=== PATIENT | female | born 1955 | race Caucasian/White ===

== ENCOUNTER 2017-04-10 22:14 | Observation (INO) | payer OTHER ==
[~2017-04-10] VITALS: Ht 160 cm; Wt 83.0 kg
[~2017-04-10 22:14] MED LIST: ACYC400T PO; IBUP-232 PO; IMIT100T PO; LISI10TA3 PO; MELA10TA PO; MIRA25TA PO; OMEP40CA2 PO; PERC7.5T13 PO; TAMS5CAP PO; TOPI50TA7 PO; VITA10004 PO; VITA500030 CHEW; ZOFR4TAB PO
[2017-04-10 22:20] VITALS: BP 179/86; PULSE 85; RESP 20; TEMP 97.6; O2SAT 95
[2017-04-10] MEDS ORDERED: NITROGLYCERIN 2% OINT 1 GM PACKET TOPICAL ONE (22:45)
[2017-04-10] MEDS ORDERED: ASPIRIN 81 MG CHEW TAB PO ONE (22:45)
[2017-04-10] MEDS ORDERED: SODIUM CHLORIDE 0.9% FLUSH 10 ML FLUSH IVF PRN (22:45)
--- NOTE | 2017-04-10 22:47 | PD ---
HPI Chief Complaint: Chest Pain Time Seen by Provider: 22:39 Travel History International Travel<30 days: No Contact w/Intl Traveler<30days: No Traveled to known affect area: No History of Present Illness HPI This is a 61-year-old female who presents to the emergency department with chest pain that started about 2 hours prior to arrival, feeling like a pressure in the center of her chest, moderate severity associated with some tingling in her left arm and some discomfort in her jaw. She also says she was short of breath when the chest pain was worse. She had just taken a long walk prior to the onset of chest pain. She denies any fevers or chills. She denies any recent long trips or leg swelling. She has a history of hypertension but denies diabetes, hyperlipidemia or smoking history. Her brother had a heart attack in her father has congestive heart failure. She thinks she may have had a stress test but it was years ago. PFSH Past Medical History Hx Anticoagulant Therapy: No Anxiety: Yes Depression: Yes Cancer: No Cardiovascular Problems: Yes (htn) Chemotherapy: No Cerebrovascular Accident: No Diabetes: No Diminished Hearing: No Endocrine: No Fibromyalgia: Yes Gastrointestinal Disorders: Yes (ACID REFLUX, DIVERTICULITIS, INFLAMED COLON) GERD: Yes Genitourinary: Yes (KIDNEY INFECTION, "STAGE 3 KIDNEY PROBLEM") Hepatitis: Yes (HEP C FROM BLOOD TRANSFUSION-AT 12) Hiatal Hernia: No Hypertension: Yes Immune Disorder: No Musculoskeletal: Yes (BACK PAIN) Neurologic: Yes (MIGRAINES, [id number]) Psychiatric: No Reproductive: No Respiratory: No Migraines: Yes Thyroid Disease: No Tetanus Vaccination: > 5 Years ?: Not : 4 Para: 2 Miscarriage: 2 Tubal Ligation: Yes Past Surgical History Abdominal Surgery: Yes (appy) AICD: No Appendectomy: Yes Gynecologic Surgery: Yes (total hysterectomy) Hysterectomy: Yes (AGE 32) Joint Replacement: No Pacemaker: No Other Surgery: Yes Social History Alcohol Use: Yes (social) Tobacco Use: No Substance Use: No Allergies-Medications (Allergen,Severity, Reaction): Coded Allergies: penicillin G (Unverified Allergy, Intermediate, HIVES, 01/29/17) Reported Meds & Prescriptions Reported Meds & Active Scripts Active Reported Vitamin D3 (Cholecalciferol) 2,000 Unit Cap 2,000 Units PO DAILY Imitrex (Sumatriptan Succinate) 100 Mg Tab 100 Mg PO ONCE PRN If a satisfactory response has not been obtained at 2 hours, a second dose may be administered Acyclovir 400 Mg Tab 400 Mg PO BID Topiramate 50 Mg Tab 50 Mg PO BID Omeprazole 40 Mg Cap 40 Mg PO DAILY Lisinopril 10 Mg Tab 10 Mg PO DAILY Review of Systems Except as stated in HPI: all other systems reviewed are Neg Physical Exam Narrative GENERAL:Well appearing, no acute distress SKIN: Focused skin assessment warm and dry. HEAD: Atraumatic. Normocephalic. EYES: Pupils equal and round. No injection or drainage. ENT: Moist mucous membranes NECK: Trachea midline. CARDIOVASCULAR: Regular rate and rhythm. No murmur appreciated. RESPIRATORY: Clear to auscultation. Breath sounds equal bilaterally. GASTROINTESTINAL: Abdomen soft, non-tender, nondistended. MUSCULOSKELETAL: No obvious deformities. NEUROLOGICAL: Awake and alert. No obvious cranial nerve deficits. Moving all extremities. PSYCHIATRIC: Appropriate mood and affect; insight and judgment normal. Data Data Last Documented VS Vital Signs Date Time Temp Pulse Resp B/P (MAP) Pulse Ox O2 Delivery O2 Flow Rate FiO2 04/10/17 22:40 Room Air 04/10/17 22:20 97.6 85 20 179/86 (117) 95 Orders Orders Electrocardiogram (04/10/17 22:44) Complete Blood Count With Diff (04/10/17 22:44) Comprehensive Metabolic Panel (04/10/17 22:44) Troponin I (04/10/17 22:44) Chest, Single Ap (04/10/17 22:44) Ecg Monitoring (04/10/17 22:44) Bilateral Bp Monitoring (04/10/17 22:44) Iv Access Insert/Monitor (04/10/17 22:44) Oximetry (04/10/17 22:44) Oxygen Administration (04/10/17 22:44) Aspirin Chew (Aspirin Chew) (04/10/17 22:45) Sodium Chloride 0.9% Flush (Ns Flush) (04/10/17 22:45) Nitroglycerin 2% Oint (Nitroglycerin 2% (04/10/17 22:45) Labs Laboratory Tests Test 04/10/17 22:50 White Blood Count 7.4 TH/MM3 Red Blood Count 4.62 MIL/MM3 Hemoglobin 14.1 GM/DL Hematocrit 43.0 % Mean Corpuscular Volume 93.0 FL Mean Corpuscular Hemoglobin 30.4 PG Mean Corpuscular Hemoglobin Concent 32.7 % Red Cell Distribution Width 12.8 % Platelet Count 185 TH/MM3 Mean Platelet Volume 9.2 FL Neutrophils (%) (Auto) 64.3 % Lymphocytes (%) (Auto) 26.8 % Monocytes (%) (Auto) 6.6 % Eosinophils (%) (Auto) 1.6 % Basophils (%) (Auto) 0.7 % Neutrophils # (Auto) 4.7 TH/MM3 Lymphocytes # (Auto) 2.0 TH/MM3 Monocytes # (Auto) 0.5 TH/MM3 Eosinophils # (Auto) 0.1 TH/MM3 Basophils # (Auto) 0.1 TH/MM3 CBC Comment DIFF FINAL Differential Comment Blood Urea Nitrogen 20 MG/DL Creatinine 1.20 MG/DL Random Glucose 106 MG/DL Total Protein 7.4 GM/DL Albumin 3.8 GM/DL Calcium Level 8.4 MG/DL Alkaline Phosphatase 91 U/L Aspartate Amino Transf (AST/SGOT) 15 U/L Alanine Aminotransferase (ALT/SGPT) 30 U/L Total Bilirubin 0.3 MG/DL Sodium Level 141 MEQ/L Potassium Level 3.7 MEQ/L Chloride Level 109 MEQ/L Carbon Dioxide Level 25.0 MEQ/L Anion Gap 7 MEQ/L Estimat Glomerular Filtration Rate 46 ML/MIN Troponin I LESS THAN 0.02 NG/ML MDM Medical Decision Making Medical Screen Exam Complete: Yes Emergency Medical Condition: Yes Interpretation(s) EKG: Normal sinus rhythm with no ST changes No leukocytosis Mild renal insufficiency Troponin is normal Chest x-ray: No acute process Differential Diagnosis Acute coronary syndrome, pulmonary embolism, costochondritis, pericarditis Narrative Course This is a 61-year-old female who presents to the emergency department with left- sided chest discomfort. She is placed on a monitor and an IV was established. EKG is nonischemic. Labs are unremarkable. She was given aspirin and nitroglycerin. Her blood pressure improved in the emergency department. She' ll be placed in observation for serial cardiac enzymes to rule out acute coronary syndrome. Diagnosis Primary Impression: Chest pain Qualified Codes: R07.9 - Chest pain, unspecified Admitting Information Admitting Physician Requests: Chantal Alves MD Apr 10, 2017 22:47
[2017-04-10] MEDS ORDERED: VITA2000 PO (22:48)
[2017-04-10 23:00] VITALS: BP 145/76
[2017-04-10 23:05] VITALS: BP 141/80
--- NOTE | 2017-04-10 23:07 | RADRPT ---
EXAM DATE/TIME: 04/10/2017 22:53 [facility] COMPARISON: No previous studies available for comparison. INDICATIONS : Chest pain. MEDICAL HISTORY : None. SURGICAL HISTORY : None. ENCOUNTER: Initial ACUITY: 1 day PAIN SCORE: 6/10 LOCATION: middle chest FINDINGS: A single view of the chest demonstrates the lungs to be symmetrically aerated without evidence of mas s, infiltrate or effusion. The cardiomediastinal contours are unremarkable. Osseous structures are intact. CONCLUSION: No acute disease. Daniele Fernandes MD on April 10, 2017 at 23:05 Board Certified Radiologist. This report was verified electronically.
[2017-04-10 23:16] LABS: AUTOMATED NEUTROPHIL # 4.7 TH/MM3 (1.8-7.7); BASOPHIL # 0.1 TH/MM3 (0-0.2); BASOPHIL % 0.7 % (0.0-2.0); EOSINOPHIL # 0.1 TH/MM3 (0-0.4); EOSINOPHIL % 1.6 % (0.0-4.0); HEMOGLOBIN 14.1 GM/DL (11.6-15.3); LYMPH % 26.8 % (9.0-44.0); MEAN CORPUSCULAR HEMOGLOBIN 30.4 PG (27.0-34.0); MEAN CORPUSCULAR HGB CONC 32.7 % (32.0-36.0); MEAN PLATELET VOLUME 9.2 FL (7.0-11.0); MONO % 6.6 % (0.0-8.0); MONOCYTE # 0.5 TH/MM3 (0-0.9); NEUT % 64.3 % (16.0-70.0); PLATELET COUNT 185 TH/MM3 (150-450); RED BLOOD COUNT 4.62 MIL/MM3 (4.00-5.30); RED CELL DISTRIBUTION WIDTH 12.8 % (11.6-17.2); WHITE BLOOD COUNT 7.4 TH/MM3 (4.0-11.0)
[2017-04-10 23:25] LABS: CHLORIDE 109 MEQ/L (98-107); SODIUM (NA) 141 MEQ/L (136-145)
[2017-04-10 23:28] LABS: ALBUMIN 3.8 GM/DL (3.4-5.0); BLOOD UREA NITROGEN 20 MG/DL (7-18); CALCIUM 8.4 MG/DL (8.5-10.1); GLUCOSE,RANDOM 106 MG/DL (74-106)
[2017-04-10 23:31] LABS: ALT (GPT) 30 U/L (10-53); AST (GOT) 15 U/L (15-37); GLOMERULAR FILTRATION RATE 46 ML/MIN (>89)
[2017-04-10 23:33] LABS: TOTAL BILIRUBIN ADULT 0.3 MG/DL (0.2-1.0); TOTAL PROTEIN 7.4 GM/DL (6.4-8.2)
[2017-04-10 23:34] LABS: ALKALINE PHOSPHATASE 91 U/L (45-117)
[2017-04-10 23:36] LABS: TROPONIN I LESS THAN 0.02 NG/ML (0.02-0.05)
[2017-04-11] VITALS (7 sets, daily range): BP systolic 103–127; BP diastolic 58–70; PULSE 72–82; RESP 16–20; TEMP 96.1–98.4; O2SAT 93–96
[2017-04-11] MEDS ORDERED: SODIUM CHLORIDE 0.9% FLUSH 10 ML FLUSH IV FLUSH PRN (01:30)
[2017-04-11] MEDS: SODIUM CHLORIDE 0.9% FLUSH 10 ML FLUSH IV FLUSH SCH ×2 (01:55→09:00)
[2017-04-11] MEDS ORDERED: ACETAMINOPHEN 325 MG TAB PO PRN (06:00)
--- NOTE | 2017-04-11 09:30 | HHI.HP ---
[facility] Shad Montana Do, MD Admission Diagnosis chest pain Diagnoses: Chief Complaint: Chest pain Travel History International Travel<30 Days: No Contact w/Intl Traveler <30 Da: No Traveled to Known Affected Are: No History of Present Illness 61-year-old white female being admitted for chest pain. Patient was in her usual state of health until last night when she was sitting watching television and experienced a sudden onset of midsternal chest pain that was crushing in nature, up to an 8 out of 10, with some mild radiation to her jaw and left shoulder. Had some shortness of breath associated with this, denies any nausea vomiting or any diaphoresis otherwise. Denies taking any medications try to treat the pain. She held a pillow tightly to her chest to see this would help, nothing really helped or worsened her pain. Pain remained at a constant level and at that point patient decided to proceed to the ER. Patient does admit to taking daily acid reflux medications. 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 w/ sister denies cig use, lived w/ parents that smoked as a child Physical Exam Vital Signs Vital Signs Date Time Temp Pulse Resp B/P (MAP) Pulse Ox O2 Delivery O2 Flow Rate FiO2 04/11/17 08:00 96.4 72 20 122/63 (82) 93 04/11/17 03:00 73 04/11/17 03:00 96.1 72 20 106/62 (77) 96 04/11/17 02:38 69 16 109/66 (80) 96 2.00 04/11/17 01:40 96 Nasal Cannula 2.00 04/11/17 01:15 78 16 103/58 (73) 95 Nasal Cannula 2.00 04/11/17 00:31 82 20 113/63 (80) 96 Nasal Cannula 2.00 04/10/17 23:05 141/80 (100) 04/10/17 23:00 145/76 (99) 04/10/17 22:40 Room Air 04/10/17 22:35 Nasal Cannula 2.00 04/10/17 22:20 95 Nasal Cannula 2.00 04/10/17 22:20 97.6 85 20 179/86 (117) 95 Physical Exam VS: Afebrile GENERAL: No acute distress, awake, lying in bed SKIN: Warm and dry. EYES: No scleral icterus. No injection or drainage. ENT: No nasal bleeding or discharge. Mucous membranes pink and moist. CARDIOVASCULAR: Regular rate and rhythm. no murmurs RESPIRATORY: No accessory muscle use. Clear to auscultation. Breath sounds equal bilaterally. GASTROINTESTINAL: Abdomen soft, non-tender, nondistended. Extremities: No clubbing, cyanosis, or edema. No obvious deformities. MUSCULOSKELETAL: Extremities without clubbing, cyanosis, or edema. No obvious deformities. grossly intact ROM with 5/5 strength in upper and lower extremities proximally. Mild chest wall sternal soreness which the patient says is not the same as her pain upon presentation. NEUROLOGICAL: Awake and alert. No obvious cranial nerve deficits. No facial droop nor slurred speech noted. PSYCHIATRIC: Appropriate mood and affect; insight and judgment normal. Laboratory Laboratory Tests Test 04/10/17 22:50 04/11/17 01:37 04/11/17 05:15 White Blood Count 7.4 Red Blood Count 4.62 Hemoglobin 14.1 Hematocrit 43.0 Mean Corpuscular Volume 93.0 Mean Corpuscular Hemoglobin 30.4 Mean Corpuscular Hemoglobin Concent 32.7 Red Cell Distribution Width 12.8 Platelet Count 185 Mean Platelet Volume 9.2 Neutrophils (%) (Auto) 64.3 Lymphocytes (%) (Auto) 26.8 Monocytes (%) (Auto) 6.6 Eosinophils (%) (Auto) 1.6 Basophils (%) (Auto) 0.7 Neutrophils # (Auto) 4.7 Lymphocytes # (Auto) 2.0 Monocytes # (Auto) 0.5 Eosinophils # (Auto) 0.1 Basophils # (Auto) 0.1 CBC Comment DIFF FINAL Differential Comment Blood Urea Nitrogen 20 Creatinine 1.20 Random Glucose 106 Total Protein 7.4 Albumin 3.8 Calcium Level 8.4 Alkaline Phosphatase 91 Aspartate Amino Transf (AST/SGOT) 15 Alanine Aminotransferase (ALT/SGPT) 30 Total Bilirubin 0.3 Sodium Level 141 Potassium Level 3.7 Chloride Level 109 Carbon Dioxide Level 25.0 Anion Gap 7 Estimat Glomerular Filtration Rate 46 Troponin I LESS THAN 0.02 LESS THAN 0.02 LESS THAN 0.02 Result Diagram: 04/10/17224904/10/172249 Imaging Last Impressions Myocardial Perfusion Scan Nuc Med 04/11/17 0000 Signed Impressions: Service Date/Time: March 10:28 - CONCLUSION: 1. No fixed or reversible defects to suggest ischemia or infarction. 2. Normal wall motion and calculated ejection fraction. RISK CATEGORY: Low (<1%% Annual Mortality Rate) Josesito Daly MD Chest X-Ray 04/10/172243 Signed Impressions: Service Date/Time: Monday, April 10, 2017 22:53 - CONCLUSION: No acute disease. Daniele Fernandes MD Caprini VTE Risk Assessment Caprini VTE Risk Assessment: Mod/High Risk (score >= 2) Caprini Risk Assessment Model Point Value = 1 Point Value = 2 Point Value = 3 Point Value = 5 Age 41-60 Minor surgery BMI > 25 kg/m2 Swollen legs Varicose veins or History of unexplained or recurrent spontaneous Oral contraceptives or hormone replacement Sepsis (< 1 month) Serious lung disease, including pneumonia (< 1 month) Abnormal pulmonary function Acute myocardial infarction Congestive heart failure (< 1 month) History of inflammatory bowel disease Medical patient at bed rest Age 61-74 Arthroscopic surgery Major open surgery (> 45 min) Laparoscopic surgery (> 45 min) Malignancy Confined to bed (> 72 hours) Immobilizing plaster cast Central venous access Age >= 75 History of VTE Family history of VTE Factor V Leiden Prothrombin [id number] Lupus anticoagulant Anticardiolipin antibodies Elevated serum homocysteine Heparin-induced thrombocytopenia Other congenital or acquired thrombophilia Stroke (< 1 month) Elective arthroplasty Hip, pelvis, or leg fracture Acute spinal cord injury (< 1 month) Prophylaxis Regimen Total Risk Factor Score Risk Level Prophylaxis Regimen 0-1 Low Early ambulation 2 Moderate Order ONE of the following: *Sequential Compression Device (SCD) *Heparin 5000 units SQ BID 3-4 Higher Order ONE of the following medications: *Heparin 5000 units SQ TID *Enoxaparin/Lovenox 40 mg SQ daily (WT < 150 kg, CrCl > 30 mL/min) *Enoxaparin/Lovenox 30 mg SQ daily (WT < 150 kg, CrCl > 10-29 mL/min) *Enoxaparin/Lovenox 30 mg SQ BID (WT < 150 kg, CrCl > 30 mL/min) AND/OR *Sequential Compression Device (SCD) 5 or more Highest Order ONE of the following medications: *Heparin 5000 units SQ TID (Preferred with Epidurals) *Enoxaparin/Lovenox 40 mg SQ daily (WT < 150 kg, CrCl > 30 mL/min) *Enoxaparin/Lovenox 30 mg SQ daily (WT < 150 kg, CrCl > 10-29 mL/min) *Enoxaparin/Lovenox 30 mg SQ BID (WT < 150 kg, CrCl > 30 mL/min) AND *Sequential Compression Device (SCD) Assessment and Plan Assessment and Plan 61-year-old white female admitted for chest pain. Hemodynamically stable upon admission. Chest pain - I independently reviewed the EKGs show sinus rhythm. We'll proceed with Lexiscan protocol initial cardiac workup otherwise, trending troponins. Unable to do treadmill stress test due to fibromyalgia. Explained to patient that most common cause chest pain is GERD and muscle skeletal origin otherwise. Hypertension - Continue home lisinopril GERD - Continue PPI Migraine - Patient complaining of migraine at this moment actively, will give one-time dose of Reglan and hold off on her when necessary sumatriptan since she might have possible stable angina. Continue her home topiramate Genital herpes - Continue home acyclovir Discharge disposition - Lexiscan was negative, patient's clinical status was stable. Has met maximal benefit from hospitalization and is clinically stable for discharge. Juan M Zurita MD Apr 11, 2017 09:30
[2017-04-11] MEDS ORDERED: ACETAMINOPHEN 500 MG CPLT PO ONE (09:45)
[2017-04-11] MEDS ORDERED: TOPIRAMATE 25 MG TAB PO SCH (09:45)
[2017-04-11] MEDS ORDERED: METOCLOPRAMIDE HCL 10 MG/2 ML VIAL IV PUSH ONE (09:45)
[2017-04-11] MEDS ORDERED: CHOLECALCIFEROL (VIT D3) 1000 UNIT TAB PO SCH (09:45)
[2017-04-11] MEDS ORDERED: PANTOPRAZOLE SOD 40 MG DELAYED RELEASE TAB PO SCH (09:45)
[2017-04-11] MEDS ORDERED: LISINOPRIL 10 MG TAB PO SCH (09:45)
[2017-04-11] MEDS ORDERED: REGADENOSON INJ 0.4 MG/5 ML SYR IV ONE (10:28)
[2017-04-11] MEDS ORDERED: ACYCLOVIR 200 MG CAP PO SCH (10:45)
--- NOTE | 2017-04-11 12:12 | RADRPT ---
EXAM DATE/TIME: 04/11/2017 10:28 [facility] COMPARISON: No previous studies available for comparison. INDICATIONS : Left sided chest pain with shortness of breath for one day. Angina. DOSE: 25.4 mCi Tc99m Myoview at stress. 8.5 mCi Tc99m Myoview at rest. 0.4 mg Lexiscan STRESS SYMPTOMS: Short of breath and flush. EJECTION FRACTION: 60% MEDICAL HISTORY : Hypertension. Hepatitis C. SURGICAL HISTORY : Hysterectomy. Appendectomy. ENCOUNTER: Initial ACUITY: 1 day PAIN SCALE: 5/10 LOCATION: Left chest TECHNIQUE: The patient underwent pharmacologic stress with infusion of prescribed dose. Continuous ECG tracing was monitored during stress. Gated SPECT imaging was performed after stress and conventional SPECT i maging was performed at rest. The examination was performed on a SPECT/CT scanner, both attenuation and non-corrected datasets were reviewed. FINDINGS: DISTRIBUTION: The maximum perfused segment at stress is in the lateral wall. There is a summed stress score 0. PERFUSION STUDY: The pattern of perfusion at stress is within normal limits. GATED STUDY: There is intact wall motion and thickening without hypokinetic or dyskinetic segments. CONCLUSION: 1. No fixed or reversible defects to suggest ischemia or infarction. 2. Normal wall motion and calculated ejection fraction. RISK CATEGORY: Low (<1% Annual Mortality Rate) Josesito Daly MD on April 11, 2017 at 12:09 Board Certified Radiologist. This report was verified electronically.
--- NOTE | 2017-04-11 12:54 | HHI.DCPOC ---
Discharge Care Plan Diagnosis: (1) Chest pain Your Health Problems Are: Chest Pain Goals to Promote Your Health * To prevent worsening of your condition and complications * To maintain your health at the optimal level Directions to Meet Your Goals Take your medications as prescribed Follow your dietary instruction Follow activity as directed Keep your appointments as scheduled Take your immunizations and boosters as scheduled If your symptoms worsen call your PCP, if no PCP go to Urgent Care Center or Emergency Room Smoking is Dangerous to Your Health. Avoid second hand smoke Call the 24-hour hour crisis hotline for domestic abuse at Riaz Kiran Apr 11, 2017 12:54
--- NOTE | 2017-04-11 12:54 | HHI.DCPOC ---
Discharge Care Plan Diagnosis: (1) Chest pain Your Health Problems Are: Chest Pain Goals to Promote Your Health * To prevent worsening of your condition and complications * To maintain your health at the optimal level Directions to Meet Your Goals Take your medications as prescribed Follow your dietary instruction Follow activity as directed Keep your appointments as scheduled Take your immunizations and boosters as scheduled If your symptoms worsen call your PCP, if no PCP go to Urgent Care Center or Emergency Room Smoking is Dangerous to Your Health. Avoid second hand smoke Call the 24-hour hour crisis hotline for domestic abuse at Riaz Kiran Apr 11, 2017 12:54
--- NOTE | 2017-04-11 12:54 | HHI.DCPOC ---
Discharge Care Plan Diagnosis: (1) Chest pain Your Health Problems Are: Chest Pain Goals to Promote Your Health * To prevent worsening of your condition and complications * To maintain your health at the optimal level Directions to Meet Your Goals Take your medications as prescribed Follow your dietary instruction Follow activity as directed Keep your appointments as scheduled Take your immunizations and boosters as scheduled If your symptoms worsen call your PCP, if no PCP go to Urgent Care Center or Emergency Room Smoking is Dangerous to Your Health. Avoid second hand smoke Call the 24-hour hour crisis hotline for domestic abuse at Riaz Kiran Apr 11, 2017 12:54
--- NOTE | 2017-04-11 14:51 | EKG ---
Date Performed: 04/10/2017 Time Performed: 22:24:12 PTAGE: 61 years EKG: Sinus rhythm NORMAL ECG NO PREVIOUS TRACING DOCTOR: Ayanna Sahu Interpretating Date/Time 04/11/2017 14:45:52
--- NOTE | 2017-04-11 14:51 | EKG ---
Date Performed: 04/10/2017 Time Performed: 22:24:12 PTAGE: 61 years EKG: Sinus rhythm NORMAL ECG NO PREVIOUS TRACING DOCTOR: Ayanna Sahu Interpretating Date/Time 04/11/2017 14:45:52
--- NOTE | 2017-04-11 14:51 | EKG ---
Date Performed: 04/10/2017 Time Performed: 22:24:12 PTAGE: 61 years EKG: Sinus rhythm NORMAL ECG NO PREVIOUS TRACING DOCTOR: Ayanna Sahu Interpretating Date/Time 04/11/2017 14:45:52
--- NOTE | 2017-04-11 14:59 | EKG ---
Date Performed: 04/11/2017 Time Performed: 01:56:03 PTAGE: 61 years EKG: Sinus rhythm WITH OCCASIONAL SUPRAVENTRICULAR PREMATURE COMPLEXES BORDERLINE ECG NO PREVIOUS TRACING Compared to prior tracing no significant change DOCTOR: Ayanna Sahu Interpretating Date/Time 04/11/2017 14:54:05
--- NOTE | 2017-04-11 14:59 | EKG ---
Date Performed: 04/11/2017 Time Performed: 04:26:25 PTAGE: 61 years EKG: Sinus rhythm NORMAL ECG PREVIOUS TRACING : 04/11/2017 01.56 Compared to prior tracing no significant change DOCTOR: Ayanna Sahu Interpretating Date/Time 04/11/2017 14:54:12
[2017-04-12] MEDS ORDERED: INFLUENZA VIRUS VACCINE (QUADRIVALENT) 0.5 ML SYR IM ONE (09:00)
--- NOTE | 2017-04-13 15:39 | TR ---
Date Performed: 04/11/2017 Time Performed: 10:52:02 DOCTOR: Julio Patel DRUG LIST: CLINICAL HISTORY: CHEST PAIN REASON FOR TEST: Chest pain REASON FOR ENDING: OBSERVATION: CONCLUSION: Lexiscan stress test was performed under standard four minute protocol. Radionuclide was injected one minute prior to ending the test. No electrocardiographic abormalities were present to suggest ischemia. Nuclear imaging and interpretation are pending. COMMENTS:
== END 2017-04-11 14:34 | disposition home or self-care (01) ==
LOC: PHED 22:14 → PHEDA 04-11 01:36 → PH3A 04-11 02:41
PROVIDERS: ADMIT Hospitalist; ATTEND Hospitalist
DX: R07.89 Other chest pain (principal); I10 Essential (primary) hypertension; G43.909 Migraine, unspecified, not intractable, without status migrainosus; A60.00 Herpesviral infection of urogenital system, unspecified; K21.9 Gastro-esophageal reflux disease without esophagitis; M79.7 Fibromyalgia; R06.02 Shortness of breath; F41.9 Anxiety disorder, unspecified; F32.9 Major depressive disorder, single episode, unspecified; Z79.899 Other long term (current) drug therapy; Z82.49 Family history of ischemic heart disease and other diseases of the circulatory system
CPT/HCPCS: 71010; 78452; 80053; 84484; 85025; 93005; 93017; 96374; 99285; A9502; G0378; J2765; J2785

== ENCOUNTER 2017-11-15 19:19 | Emergency (ER) | payer OTHER ==
[~2017-11-15] VITALS: Ht 160 cm; Wt 84.3 kg
[~2017-11-15 19:19] MED LIST changes: -IBUP-232 PO; -MELA10TA PO; -MIRA25TA PO; -PERC7.5T13 PO; -TAMS5CAP PO; -VITA10004 PO; +VITA2000 PO; -VITA500030 CHEW; -ZOFR4TAB PO
[2017-11-15 19:23] VITALS: BP 148/68; PULSE 89; RESP 16; TEMP 98; O2SAT 96
[2017-11-15] MEDS ORDERED: OMEP20CA2 (19:50)
[2017-11-15] MEDS ORDERED: ACYC800T PO (19:50)
[2017-11-15] MEDS ORDERED: ROSU1TAB4 PO (19:50)
[2017-11-15] MEDS ORDERED: SODIUM CHLOR 0.9% 1000 ML INJ 1,000 ML IV SCH (19:52)
--- NOTE | 2017-11-15 19:56 | PD ---
HPI Chief Complaint: Abdominal Pain Time Seen by Provider: 19:34 Travel History International Travel<30 days: No Contact w/Intl Traveler<30days: No Traveled to known affect area: No History of Present Illness HPI Patient 62-year-old female with a history of kidney stones never requiring operative intervention presents emergency department for evaluation of suprapubic abdominal discomfort radiating to her back over the past few days, the patient states initially started just with suprapubic pain and then progressed to having back pain as well. She states it feels somewhat different than her normal kidney stone pain but is been for some time since she has had a kidney stone. No fevers no diarrhea no constipation mild nausea without vomiting. No chest pain or shortness of breath no headache. States symptoms are moderate, gradually worsening over the past few days, radiation and context as above per No vaginal bleeding vaginal discharge fevers diarrhea constipation vomiting blood in stool peer PFSH Past Medical History Hx Anticoagulant Therapy: No Anxiety: Yes Depression: Yes Cancer: No Cardiovascular Problems: Yes (htn) Chemotherapy: No Cerebrovascular Accident: No Diabetes: No Diminished Hearing: No Endocrine: No Fibromyalgia: Yes Gastrointestinal Disorders: Yes (ACID REFLUX, DIVERTICULITIS, INFLAMED COLON) GERD: Yes Genitourinary: Yes (KIDNEY INFECTION, "STAGE 3 KIDNEY PROBLEM") Hepatitis: Yes (HEP C FROM BLOOD TRANSFUSION-AT 12) Hiatal Hernia: No Hypertension: Yes Immune Disorder: No Implanted Vascular Access Dvce: No Musculoskeletal: Yes (BACK PAIN) Neurologic: Yes (MIGRAINES, [id number]) Psychiatric: No Reproductive: No Respiratory: No Migraines: Yes Radiation Therapy: No Thyroid Disease: No Tetanus Vaccination: > 5 Years Influenza Vaccination: Yes : 4 Para: 2 Miscarriage: 2 Tubal Ligation: Yes Past Surgical History Abdominal Surgery: Yes (appy) AICD: No Appendectomy: Yes Gynecologic Surgery: Yes (total hysterectomy) Hysterectomy: Yes Joint Replacement: No Pacemaker: No Other Surgery: Yes Social History Alcohol Use: Yes (social) Tobacco Use: No Substance Use: No Allergies-Medications (Allergen,Severity, Reaction): Coded Allergies: penicillin G (Verified Allergy, Intermediate, HIVES, 11/15/17) Reported Meds & Prescriptions Reported Meds & Active Scripts Active Bentyl (Dicyclomine HCl) 10 Mg Cap 10 Mg PO TID PRN Keflex (Cephalexin) 500 Mg Cap 500 Mg PO Q6H 7 Days Reported Rosuvastatin (Rosuvastatin Calcium) 5 Mg Tab 5 Mg PO DAILY Acyclovir 800 Mg Tab 800 Mg PO BID Omeprazole 20 Mg Cap Imitrex (Sumatriptan Succinate) 100 Mg Tab 100 Mg PO ONCE PRN If a satisfactory response has not been obtained at 2 hours, a second dose may be administered Topiramate 50 Mg Tab 50 Mg PO BID Lisinopril 10 Mg Tab 10 Mg PO DAILY Review of Systems Except as stated in HPI: all other systems reviewed are Neg Physical Exam Narrative GENERAL: Well-developed well-nourished no obvious distress SKIN: Focused skin assessment warm/dry. HEAD: Atraumatic. Normocephalic. EYES: Pupils equal and round. No scleral icterus. No injection or drainage. ENT: No nasal bleeding or discharge. Mucous membranes pink and moist. NECK: Trachea midline. No JVD. CARDIOVASCULAR: Regular rate and rhythm. No murmur appreciated. RESPIRATORY: No accessory muscle use. Clear to auscultation. Breath sounds equal bilaterally. GASTROINTESTINAL: Abdomen soft, non-tender, nondistended. Hepatic and splenic margins not palpable. No rebound no percussive tenderness, no CVA tenderness. Really the abdomen is benign peer MUSCULOSKELETAL: No obvious deformities. No clubbing. No cyanosis. No edema. NEUROLOGICAL: Awake and alert. No obvious cranial nerve deficits. Motor grossly within normal limits. Normal speech. PSYCHIATRIC: Appropriate mood and affect; insight and judgment normal. Data Data Last Documented VS Vital Signs Date Time Temp Pulse Resp B/P (MAP) Pulse Ox O2 Delivery O2 Flow Rate FiO2 11/15/17 22:01 11/15/17 21:30 78 18 96 Room Air 11/15/17 19:23 98.0 Orders Orders Complete Blood Count With Diff (11/15/17 19:52) Comprehensive Metabolic Panel (11/15/17 19:52) Lipase (11/15/17 19:52) Urinalysis - C+S If Indicated (11/15/17 19:52) Iv Access Insert/Monitor (11/15/17 19:52) Ecg Monitoring (11/15/17 19:52) Oximetry (11/15/17 19:52) Sodium Chlor 0.9% 1000 Ml Inj (Ns 1000 M (11/15/17 19:52) Sodium Chloride 0.9% Flush (Ns Flush) (11/15/17 20:00) Ketorolac Inj (Toradol Inj) (11/15/17 20:00) Ondansetron Odt (Zofran Odt) (11/15/17 20:00) Urine Culture (11/15/17 20:08) Ct Abd/Pel W/O Iv Contrast (11/15/17 ) Ed Discharge Order (11/15/17 21:54) Dicyclomine (Bentyl) (11/15/17 22:15) Labs Laboratory Tests Test 11/15/17 20:08 White Blood Count 10.0 TH/MM3 Red Blood Count 4.94 MIL/MM3 Hemoglobin 15.0 GM/DL Hematocrit 46.7 % Mean Corpuscular Volume 94.5 FL Mean Corpuscular Hemoglobin 30.4 PG Mean Corpuscular Hemoglobin Concent 32.2 % Red Cell Distribution Width 12.8 % Platelet Count 217 TH/MM3 Mean Platelet Volume 8.5 FL Neutrophils (%) (Auto) 69.2 % Lymphocytes (%) (Auto) 22.1 % Monocytes (%) (Auto) 6.0 % Eosinophils (%) (Auto) 1.6 % Basophils (%) (Auto) 1.1 % Neutrophils # (Auto) 6.9 TH/MM3 Lymphocytes # (Auto) 2.2 TH/MM3 Monocytes # (Auto) 0.6 TH/MM3 Eosinophils # (Auto) 0.2 TH/MM3 Basophils # (Auto) 0.1 TH/MM3 CBC Comment DIFF FINAL Differential Comment Urine Color YELLOW Urine Turbidity CLEAR Urine pH 5.5 Urine Specific Mcdowell 1.020 Urine Protein NEG mg/dL Urine Glucose (UA) NEG mg/dL Urine Ketones NEG mg/dL Urine Occult Blood NEG Urine Nitrite NEG Urine Bilirubin NEG Urine Urobilinogen 0.2 MG/DL Urine Leukocyte Esterase MOD Urine RBC 0-3 /hpf Urine WBC 9-14 /hpf Urine WBC Clumps FEW Urine Squamous Epithelial Cells 0-5 /hpf Urine Bacteria FEW /hpf Urine Mucus FEW /lpf Microscopic Urinalysis Comment CULTURE INDICATED Blood Urea Nitrogen 24 MG/DL Creatinine 1.44 MG/DL Random Glucose 92 MG/DL Total Protein 7.7 GM/DL Albumin 4.0 GM/DL Calcium Level 8.9 MG/DL Alkaline Phosphatase 100 U/L Aspartate Amino Transf (AST/SGOT) 16 U/L Alanine Aminotransferase (ALT/SGPT) 31 U/L Total Bilirubin 0.4 MG/DL Sodium Level 140 MEQ/L Potassium Level 3.6 MEQ/L Chloride Level 108 MEQ/L Carbon Dioxide Level 23.0 MEQ/L Anion Gap 9 MEQ/L Estimat Glomerular Filtration Rate 37 ML/MIN Lipase 350 U/L MDM Medical Decision Making Medical Screen Exam Complete: Yes Emergency Medical Condition: Yes Differential Diagnosis Kidney stone, UTI, acute abdomen unlikely, diverticulitis, colitis peer Narrative Course Patient room to the emergency department, she appears well and her abdomen is benign. She does have a bandlike distribution in her low abdomen, could be consistent with urinary tract infection which she has tested positive for here, CT abdomen does not show any kidney stones. Unfortunately our chemistry analyzer has gone down while the patient is in the emergency department with no telling when it will return functioning. I do have a sodium potassium and chloride on the patient which are reassuring. The patient is feeling somewhat better, and I discussed that while I do not have her creatinine or liver function tests back yet the remainder of her labs including a CBC and basic electrolytes are reassuring and I think that it is reasonable for her to consider discharge with antibiotic therapy at this time and she is agreeable. Discussed follow-up with her primary care physician and return to ED criteria. Later in the evening at the time of this dictation I reviewed her labs and her creatinine is baseline her LFTs and the remainder of the chemistry are reassuring. There is no indication for any other interventions based on these labs. Diagnosis Primary Impression: UTI (urinary tract infection) Med/Other Pt SpecificInfo: Prescription(s) given Scripts Dicyclomine (Bentyl) 10 Mg Cap 10 MG PO TID Y for ABDOMINAL CRAMPING, #20 CAP 0 Refills Prov: Nickolas Chowdhury MD 11/15/17 Cephalexin (Keflex) 500 Mg Cap 500 MG PO Q6H for Infection for 7 Days, #28 CAP 0 Refills Prov: Nickolas Chowdhury MD 11/15/17 Disposition: 01 DISCHARGE HOME Condition: Stable Nickolas Chowdhury MD Nov 15, 2017 19:56
[2017-11-15] MEDS ORDERED: ONDANSETRON ODT 4 MG TAB PO ONE (20:00)
[2017-11-15] MEDS ORDERED: SODIUM CHLORIDE 0.9% FLUSH 10 ML FLUSH IV FLUSH PRN (20:00)
[2017-11-15] MEDS ORDERED: KETOROLAC TROMETHAMINE 30 MG/ML (IVP) VIAL IVP ONE (20:00)
[2017-11-15 20:22] LABS: BILIRUBIN, URINE NEG (NEG); BLOOD, URINE NEG (NEG); GLUCOSE,URINE NEG (NEG); KETONE, URINE NEG (NEG); NITRITE,URINE NEG (NEG); PH, URINE 5.5 (5.0-8.5); URINE COLOR YELLOW (YELLW/STRAW); URINE LEUKOCYTE ESTERASE MOD (NEG)
[2017-11-15 20:27] LABS: AUTOMATED NEUTROPHIL # 6.9 TH/MM3 (1.8-7.7); BASOPHIL # 0.1 TH/MM3 (0-0.2); BASOPHIL % 1.1 % (0.0-2.0); EOSINOPHIL # 0.2 TH/MM3 (0-0.4); EOSINOPHIL % 1.6 % (0.0-4.0); HEMATOCRIT 46.7 % (35.0-46.0); LYMPH % 22.1 % (9.0-44.0); LYMPHOCYTE # 2.2 TH/MM3 (1.0-4.8); MEAN CELL VOLUME 94.5 FL (80.0-100.0); MEAN CORPUSCULAR HEMOGLOBIN 30.4 PG (27.0-34.0); MEAN CORPUSCULAR HGB CONC 32.2 % (32.0-36.0); MEAN PLATELET VOLUME 8.5 FL (7.0-11.0); MONOCYTE # 0.6 TH/MM3 (0-0.9); NEUT % 69.2 % (16.0-70.0); PLATELET COUNT 217 TH/MM3 (150-450); RED BLOOD COUNT 4.94 MIL/MM3 (4.00-5.30); RED CELL DISTRIBUTION WIDTH 12.8 % (11.6-17.2)
[2017-11-15 20:29] LABS: MUCUS URINE FEW /lpf (OCC)
[2017-11-15 20:30] VITALS: RESP 16; O2SAT 97
[2017-11-15 20:30] LABS: BACTERIA, URINE FEW /hpf; SQUAMOUS EPITHELIAL CELL URINE 0-5 /hpf (0-5); WHITE BLOOD CELL CLUMPS FEW
[2017-11-15 20:31] LABS: RBC, URINE 0-3 /hpf (0-3)
[2017-11-15 20:33] LABS: CHLORIDE 108 MEQ/L (98-107); SODIUM (NA) 140 MEQ/L (136-145)
[2017-11-15 20:37] LABS: CALCIUM 8.9 MG/DL (8.5-10.1)
[2017-11-15 21:30] VITALS: BP 96/53; PULSE 78; RESP 18; O2SAT 96
--- NOTE | 2017-11-15 21:32 | RADRPT ---
EXAM DATE: 11/15/2017 9:24 PM EDT AGE/SEX: 62 years / Female INDICATIONS: Lower abdomen pain and back pain for two days CLINICAL DATA: This is the patient's initial encounter. Patient reports that signs and symptoms have been present for 2 days and indicates a pain score of 6/10. MEDICAL/SURGICAL HISTORY: Hypertension. Diverticulitis. Renal disease. Hep c Appendectomy. Hysterectomy. RADIATION DOSE: 16.70 CTDI (mGy) COMPARISON: [facility], CT ABDOMEN & PELVIS W/O CONTRAST, 05/20/2016. . TECHNIQUE: Multiple contiguous axial images were obtained through the abdomen. Images were obtained using multiple row detector helical technique. Using dose reduction techniques, radiation dose was ke pt as low as reasonably achievable to obtain optimal diagnostic quality images. FINDINGS: Lower chest: No acute abnormality is identified. Hepatobiliary: Liver density is normal. There are multiple low-density lesions measuring up to 2.2 cm . These are stable and the larger lesions have features consistent with cysts while some of the small er lesions are too small to characterize. There are calcified stones in the gallbladder. No wall thic kening is present. Kidneys: No hydronephrosis, stone, or mass. Left kidney remains atrophic and there is a mildly hyperd ense stable lesion at the left upper pole kidney measuring 2.3 cm. Adrenal Glands: Within normal limits. Spleen: Within normal limits. Pancreas: Within normal limits. Vascular: The aorta is nonaneurysmal. There is mild atherosclerotic disease. Bowel/Mesentery: The stomach and small bowel demonstrate no abnormality. No acute colon abnormality i s seen. There is no free intraperitoneal air or fluid. There is sigmoid diverticulosis and mild scatt ered diverticula around the remainder of the colon. Abdominal Wall: No hernia is visualized. Retroperitoneum: No lymphadenopathy. Bladder: No wall thickening or mass. Reproductive: Uterus is absent. No adnexal abnormality is seen. Inguinal: No lymphadenopathy or hernia. Musculoskeletal: No acute osseous abnormality is identified. There are degenerative changes of the miah mbar spine. CONCLUSION: 1. No acute finding is identified to explain the clinical symptoms. 2. Stable mildly atrophic left kidney containing a mildly hyperdense left upper pole lesion measurin g 2.3 cm. 3. Stable nonacute findings include cholelithiasis, hepatic cysts, and sigmoid diverticulosis. Electronically signed by: Daniele Broussard MD 11/15/2017 9:31 PM EDT
[2017-11-15] MEDS ORDERED: CEPH-460 PO (21:54)
[2017-11-15] MEDS ORDERED: DICY10 PO (22:12)
[2017-11-15 22:13] LABS: AST (GOT) 16 U/L (15-37); BLOOD UREA NITROGEN 24 MG/DL (7-18); CREATININE 1.44 MG/DL (0.50-1.00); GLOMERULAR FILTRATION RATE 37 ML/MIN (>89); GLUCOSE,RANDOM 92 MG/DL (74-106)
[2017-11-15 22:14] LABS: ALT (GPT) 31 U/L (10-53)
[2017-11-15] MEDS ORDERED: DICYCLOMINE HCL 10 MG CAP PO ONE (22:15)
[2017-11-15 22:17] LABS: ALKALINE PHOSPHATASE 100 U/L (45-117); TOTAL BILIRUBIN ADULT 0.4 MG/DL (0.2-1.0); TOTAL PROTEIN 7.7 GM/DL (6.4-8.2)
== END 2017-11-15 22:30 | disposition home or self-care (01) ==
LOC: PHED 19:19
DX: N39.0 Urinary tract infection, site not specified (principal); B95.61 Methicillin susceptible Staphylococcus aureus infection as the cause of diseases classified elsewhere; F41.9 Anxiety disorder, unspecified; F32.9 Major depressive disorder, single episode, unspecified; I10 Essential (primary) hypertension; M79.7 Fibromyalgia; K21.9 Gastro-esophageal reflux disease without esophagitis; B19.20 Unspecified viral hepatitis C without hepatic coma; Z87.442 Personal history of urinary calculi
CPT/HCPCS: 74176; 80053; 81001; 83690; 85025; 86403; 87086; 87186; 96361; 96374; 99284; J1885; J7030